=== PATIENT | female | born 1995 | race Two or more races ===

== ENCOUNTER 2022-08-14 00:04 | Emergency (ER) | payer MEDICAID ==
[~2022-08-14] VITALS: Ht 157.5 cm; Wt 83.5 kg
[2022-08-14 00:41] VITALS: BP 108/69
[2022-08-14 01:01] LABS: Urine Bacteria NONE SEEN /hpf (None Seen); Urine Blood Negative /uL (Negative); Urine Specific Gravity 1.025 (1.001-1.035); Urine WBC <1 /hpf (0 - 5)
[2022-08-14 01:06] LABS: Basophils # (auto) 0 10 ^3/uL (0-0.2); Basophils % (auto) 0.5 % (0.0-2.0); Eosinophils # (auto) 0.2 10 ^3/uL (0-0.8); Eosinophils % (auto) 2.5 % (0.0-7.0); Hematocrit 39.6 % (36.0-46.0); Lymphocytes # (auto) 1.8 10 ^3/uL (0.4-5.4); Lymphocytes % (auto) 27.1 % (10.0-50.0); Mean Corpuscular Hemoglobin 28.8 pg (28.0-32.0); Mean Corpuscular Hgb Conc. 32.9 g/dL (32.0-36.0); Mean Corpuscular Volume 87.6 fL (80.0-100.0); Monocytes # (auto) 0.5 10 ^3/uL (0-1.3); Monocytes % (auto) 7.2 % (0.0-12.0); Neutrophils # (auto) 4.2 10 ^3/uL (1.6-8.6); Neutrophils % (auto) 62.7 % (37.0-80.0); Nucleated Red Blood Cells % 0.1 %; Red Blood Cells 4.52 10^6/uL (4.0-5.20); Red Cell Distribution Width 13.2 % (11.8-14.3); White Blood Cell 6.7 10^3/uL (4.4-10.8)
[2022-08-14 01:19] LABS: Albumin 3.4 g/dL (3.4-5.0); BUN/Creatinine Ratio 23.4; Calcium 9.2 mg/dL (8.5-10.1)
[2022-08-14 01:22] LABS: Bilirubin, Total 0.3 mg/dL (0.2-1.0); Total Protein 6.9 g/dL (6.4-8.2)
[2022-08-14] MEDS ORDERED: PANT40TA2 PO (11:10)
== END 2022-08-14 04:31 | disposition left against medical advice (07) ==
LOC: ER 00:04
DX: K92.2 Gastrointestinal hemorrhage, unspecified (principal); J45.909 Unspecified asthma, uncomplicated
CPT/HCPCS: 36415; 74176; 80053; 81001; 83690; 84702; 85025

== ENCOUNTER 2022-08-14 10:27 | Emergency (ER) | payer MEDICAID ==
[~2022-08-14] VITALS: Ht 157.5 cm; Wt 88.4 kg
[2022-08-14 11:07] LABS: Basophils # (auto) 0 10 ^3/uL (0-0.2); Basophils % (auto) 0.6 % (0.0-2.0); Eosinophils # (auto) 0.1 10 ^3/uL (0-0.8); Eosinophils % (auto) 1.5 % (0.0-7.0); Hematocrit 42.7 % (36.0-46.0); Hemoglobin 14.4 g/dL (12.2-16.2); Lymphocytes # (auto) 1.3 10 ^3/uL (0.4-5.4); Lymphocytes % (auto) 20.9 % (10.0-50.0); Mean Corpuscular Hemoglobin 29.3 pg (28.0-32.0); Mean Corpuscular Hgb Conc. 33.8 g/dL (32.0-36.0); Mean Corpuscular Volume 86.8 fL (80.0-100.0); Monocytes # (auto) 0.3 10 ^3/uL (0-1.3); Monocytes % (auto) 5.1 % (0.0-12.0); Neutrophils # (auto) 4.3 10 ^3/uL (1.6-8.6); Neutrophils % (auto) 71.9 % (37.0-80.0); Nucleated Red Blood Cells % 0.1 %; Red Blood Cells 4.91 10^6/uL (4.0-5.20); Red Cell Distribution Width 13.1 % (11.8-14.3)
[2022-08-14] MEDS ORDERED: PANT40TA2 PO (11:10)
[2022-08-14 11:33] LABS: Albumin 3.9 g/dL (3.4-5.0); BUN/Creatinine Ratio 18.2; Calcium 8.8 mg/dL (8.5-10.1); Potassium 3.8 mmol/L (3.5-5.1)
[2022-08-14 11:36] LABS: Bilirubin, Total 0.6 mg/dL (0.2-1.0); Total Protein 7.3 g/dL (6.4-8.2)
[2022-08-14 11:41] LABS: Urine Bacteria NONE SEEN /hpf (None Seen); Urine Blood Negative /uL (Negative); Urine Mucus FEW (None Seen); Urine Specific Gravity 1.028 (1.001-1.035); Urine WBC 1 /hpf (0 - 5)
[2022-08-14 14:46] VITALS: BP 109/69
== END 2022-08-14 14:48 | disposition home or self-care (01) ==
LOC: ER 10:27
DX: N83.201 Unspecified ovarian cyst, right side (principal); J45.909 Unspecified asthma, uncomplicated
CPT/HCPCS: 36415; 76856; 80053; 81001; 84702; 85025

== ENCOUNTER 2022-12-29 18:51 | Emergency (ER) | payer BC, MEDICAID ==
[~2022-12-29] VITALS: Ht 157.5 cm; Wt 78.0 kg
[~2022-12-29 18:51] MED LIST: PANT40TA2 PO
[2022-12-29 19:13] VITALS: BP 121/71
[2022-12-29 19:36] LABS: Basophils # (auto) 0 10 ^3/uL (0-0.2); Basophils % (auto) 0.7 % (0.0-2.0); Eosinophils # (auto) 0.1 10 ^3/uL (0-0.8); Eosinophils % (auto) 1.8 % (0.0-7.0); Hematocrit 40.8 % (36.0-46.0); Hemoglobin 13.2 g/dL (12.2-16.2); Lymphocytes # (auto) 1.5 10 ^3/uL (0.4-5.4); Lymphocytes % (auto) 29.1 % (10.0-50.0); Mean Corpuscular Hemoglobin 28.2 pg (28.0-32.0); Mean Corpuscular Hgb Conc. 32.5 g/dL (32.0-36.0); Mean Corpuscular Volume 86.9 fL (80.0-100.0); Monocytes # (auto) 0.3 10 ^3/uL (0-1.3); Monocytes % (auto) 6.4 % (0.0-12.0); Neutrophils # (auto) 3.2 10 ^3/uL (1.6-8.6); Nucleated Red Blood Cells % 0.2 %; Red Blood Cells 4.69 10^6/uL (4.0-5.20); Red Cell Distribution Width 13.2 % (11.8-14.3); White Blood Cell 5.2 10^3/uL (4.4-10.8)
[2022-12-29 20:09] LABS: Albumin 3.6 g/dL (3.4-5.0); Calcium 8.8 mg/dL (8.5-10.1); Potassium 3.7 mmol/L (3.5-5.1)
[2022-12-29 20:13] LABS: BUN/Creatinine Ratio 18.1 (10.0-20.0); Bilirubin, Total 0.3 mg/dL (0.2-1.0); Total Protein 7.2 g/dL (6.4-8.2)
[2022-12-29] MEDS ORDERED: ACETAMINOPHEN 500 MG TAB PO ONE (20:15)
[2022-12-29 20:44] LABS: Urine Bacteria NONE SEEN /hpf (None Seen); Urine Blood Negative /uL (Negative); Urine Specific Gravity 1.016 (1.001-1.035); Urine WBC 1 /hpf (0 - 5)
[2022-12-29] MEDS ORDERED: ACET-1158 PO (22:39)
[2022-12-29] MEDS ORDERED: ONDA-144 PO (22:39)
[2022-12-29] MEDS ORDERED: DOCU-94 PO (22:39)
== END 2022-12-29 23:31 | disposition home or self-care (01) ==
LOC: ER 18:51
DX: O34.81 Maternal care for other abnormalities of pelvic organs, first trimester (principal); N83.299 Other ovarian cyst, unspecified side; R10.2 Pelvic and perineal pain; Z3A.01 Less than 8 weeks gestation of pregnancy
CPT/HCPCS: 36415; 76705; 76830; 76856; 80053; 81001; 83690; 84702; 85025

== ENCOUNTER 2023-03-02 15:24 | Emergency (ER) | payer BC, MEDICAID ==
[~2023-03-02] VITALS: Ht 157.5 cm; Wt 86.7 kg
[~2023-03-02 15:24] MED LIST changes: +ACET500T58 PO; +DOCU-94 PO; +ONDA-144 PO
[2023-03-02 16:04] VITALS: BP 104/56
[2023-03-02 16:38] LABS: Basophils # (auto) 0 10 ^3/uL (0-0.2); Basophils % (auto) 0.4 % (0.0-2.0); Eosinophils # (auto) 0.1 10 ^3/uL (0-0.8); Eosinophils % (auto) 1.3 % (0.0-7.0); Hematocrit 41.8 % (36.0-46.0); Hemoglobin 13.9 g/dL (12.2-16.2); Lymphocytes # (auto) 1.3 10 ^3/uL (0.4-5.4); Lymphocytes % (auto) 17.3 % (10.0-50.0); Mean Corpuscular Hemoglobin 28.9 pg (28.0-32.0); Mean Corpuscular Hgb Conc. 33.2 g/dL (32.0-36.0); Mean Corpuscular Volume 87.2 fL (80.0-100.0); Monocytes # (auto) 0.4 10 ^3/uL (0-1.3); Monocytes % (auto) 4.8 % (0.0-12.0); Neutrophils # (auto) 5.8 10 ^3/uL (1.6-8.6); Neutrophils % (auto) 76.2 % (37.0-80.0); Nucleated Red Blood Cells % 0.1 %; Red Cell Distribution Width 13.1 % (11.8-14.3); White Blood Cell 7.6 10^3/uL (4.4-10.8)
[2023-03-02 17:04] LABS: Albumin 3.4 g/dL (3.4-5.0); BUN/Creatinine Ratio 13.8 (10.0-20.0); Calcium 9.1 mg/dL (8.5-10.1); Potassium 3.5 mmol/L (3.5-5.1)
[2023-03-02 17:06] LABS: Bilirubin, Total 0.5 mg/dL (0.2-1.0); Total Protein 7.2 g/dL (6.4-8.2)
[2023-03-02 17:19] LABS: Urine Bacteria NONE SEEN /hpf (None Seen); Urine Blood Negative /uL (Negative); Urine Mucus FEW (None Seen); Urine Specific Gravity 1.018 (1.001-1.035); Urine WBC 1 /hpf (0 - 5)
== END 2023-03-02 18:55 | disposition left against medical advice (07) ==
LOC: ER 15:24
DX: O99.611 Diseases of the digestive system complicating pregnancy, first trimester (principal); O26.891 Other specified pregnancy related conditions, first trimester; K92.9 Disease of digestive system, unspecified; R10.30 Lower abdominal pain, unspecified; R10.2 Pelvic and perineal pain; R05.9 Cough, unspecified; R07.89 Other chest pain; J45.909 Unspecified asthma, uncomplicated; Z79.899 Other long term (current) drug therapy; Z3A.13 13 weeks gestation of pregnancy; Z53.29 Procedure and treatment not carried out because of patient's decision for other reasons
CPT/HCPCS: 36415; 76805; 80053; 81001; 84484; 84702; 85025; 86900; 86901; 93005

== ENCOUNTER 2023-05-02 12:08 | Observation (INO) | payer BC, MEDICAID ==
[~2023-05-02] VITALS: Ht 157.5 cm; Wt 92.6 kg
[2023-05-02 12:15] VITALS: BP 110/55; PULSE 88; RESP 18; O2SAT 94
[2023-05-02] MEDS ORDERED: TERC0.4C2 VG (13:55)
== END 2023-05-02 14:18 | disposition home or self-care (01) ==
LOC: ER 12:08 → LDRP 12:32
PROVIDERS: ADMIT Obstetrics & Gynecology; ATTEND Obstetrics & Gynecology
DX: O26.892 Other specified pregnancy related conditions, second trimester (principal); B37.31 Acute candidiasis of vulva and vagina; R10.2 Pelvic and perineal pain; O99.512 Diseases of the respiratory system complicating pregnancy, second trimester; J45.909 Unspecified asthma, uncomplicated; Z3A.23 23 weeks gestation of pregnancy
CPT/HCPCS: 59025; 81002; 94762; 99284; G0378

== ENCOUNTER 2023-05-16 14:15 | Observation (INO) | payer BC, MEDICAID ==
[~2023-05-16 14:15] MED LIST changes: +TERC0.4C2 VG
[2023-05-16] MEDS ORDERED: PREN-96 PO (15:52)
== END 2023-05-16 16:07 | disposition home or self-care (01) ==
LOC: LDRP 14:15
PROVIDERS: ADMIT Obstetrics & Gynecology; ATTEND Obstetrics & Gynecology
DX: O26.892 Other specified pregnancy related conditions, second trimester (principal); N89.8 Other specified noninflammatory disorders of vagina; R10.2 Pelvic and perineal pain; R10.30 Lower abdominal pain, unspecified; O26.852 Spotting complicating pregnancy, second trimester; Z3A.25 25 weeks gestation of pregnancy
CPT/HCPCS: 59025; 76815; 81002; 94760; G0378

== ENCOUNTER 2023-06-22 20:00 | Observation (INO) | payer BC, MEDICAID ==
[~2023-06-22] VITALS: Ht 157.5 cm; Wt 95.3 kg
[~2023-06-22 20:00] MED LIST changes: +PREN-96 PO; -TERC0.4C2 VG
[2023-06-22] MEDS ORDERED: ACETAMINOPHEN 325 MG TAB PO ONE (21:00)
== END 2023-06-22 23:22 | disposition home or self-care (01) ==
LOC: LDRP 20:00
PROVIDERS: ADMIT Obstetrics & Gynecology; ATTEND Obstetrics & Gynecology
DX: O36.8130 Decreased fetal movements, third trimester, not applicable or unspecified (principal); O26.873 Cervical shortening, third trimester; O26.893 Other specified pregnancy related conditions, third trimester; R10.2 Pelvic and perineal pain; R11.0 Nausea; R42 Dizziness and giddiness; Z87.891 Personal history of nicotine dependence; Z3A.30 30 weeks gestation of pregnancy
CPT/HCPCS: 59025; 76805; 76817; 81002; 94760; G0378